=== PATIENT | female | born 1965 | race Caucasian/White ===

== ENCOUNTER 2017-07-02 10:07 | Emergency (ER) | payer BC ==
[2017-07-02 10:15] VITALS: BMI 26.4
--- NOTE | 2017-07-02 11:41 | PDOC ---
History of Present Illness - General Chief Complaint: Pain Stated Complaint: LT BREAST PAIN Time Seen by Provider: 07/02/17 10:28 - History of Present Illness Initial Comments: 07/02/17 11:28 CHIEF COMPLAINT: left sided pain HISTORY OF PRESENT ILLNESS: 52 yo F with hx of GERD presents to ED with L sided rib pain. Patient reports that she was recently on a cruise for a week in [place] on which "like 60 people got food poisoning"; she was vomiting and had " a lot of diarrhea" and went to the hospital when she returned to the port in [place] where she was started on Omeprazole. She stopped taking the Omeprazole three days ago. She denies any current nausea, vomiting, or diarrhea but states that she did have a lot of reflux pain after she had food poisoning. She states that today she started feeling "like warm, hot" when she urinates and that she "has to pee all the time." She reports a lot of pain to her left rib but denies any chest pain, palpitations, or shortness of breath. PAST MEDICAL HISTORY: GERD FAMILY HISTORY: Denies SOCIAL HISTORY: Denies tobacco, alcohol, illicit drug use. SURGICAL HISTORY: Denies ALLERGIES: No known drug allergies REVIEW OF SYSTEMS General/Constitutional: Denies fever or chills. Denies weakness, weight change. HEENT: Denies change in vision. Denies ear pain or discharge. Denies sore throat. Cardiovascular: Denies chest pain or shortness of breath. Respiratory: Denies cough, wheezing, or hemoptysis. Gastrointestinal: Denies nausea, vomiting, diarrhea or constipation. Denies rectal bleeding. Genitourinary: Urinary discomfort, urinary frequency. Musculoskeletal: Denies joint or muscle swelling or pain. Denies neck or back pain. Skin and breasts: Denies rash or easy bruising. PHYSICAL EXAM General Appearance: Well-appearing, appropriately dressed. No apparent distress. HEENT: EOMI, PERRLA, normal ENT inspection, normal voice, TMs normal, pharynx normal. No conjunctival pallor. No photophobia, scleral icterus. Neck: Supple. Trachea midline. No tenderness, rigidity, carotid bruit, stridor , lymphadenopathy, or thyromegaly. Respiratory/Chest: Lungs CTAB. No shortness of breath, chest tenderness, respiratory distress, accessory muscle use. No crackles, rales, rhonchi, stridor , wheezing, dullness Cardiovascular: RRR. S1, S2. Gastrointestinal/Abdominal: Normal bowel sounds. Abdomen soft, non-distended. No tenderness or rebound tenderness. No organomegaly, pulsatile mass, guarding , hernia, hepatomegaly, splenomegaly. Musculoskeletal/Extremities: L CVA tenderness vs tenderness to L lateral rib. FROM of all extremities, normal capillary refill. Pelvis Stable. No CVA tenderness. No tenderness to extremities, pedal edema, swelling, erythema or deformity. Integumentary: Appropriate color, dry, warm. No cyanosis, erythema, jaundice or rash Neurologic: lead radiologic technologist II-XII intact. Fully oriented, alert. Appropriate mood/affect. Motor strength 5/5. No appreciable EOM palsy, facial droop or sensory deficit. 07/02/17 11:44 Past History - Past Medical History Allergies/Adverse Reactions: Allergies Allergy/AdvReac Type Severity Reaction Status Date / Time No Known Allergies Allergy Verified 07/02/17 10:15 Home Medications: Ambulatory Orders Naproxen 250 mg PO BID #14 tablet 07/02/17 Anemia: No Asthma: No Cancer: No Cardiac Disorders: No CVA: No COPD: No CHF: No Dementia: No Diabetes: No GI Disorders: Yes (GERD, HIATAL HERNIA) Disorders: No HTN: No Hypercholesterolemia: Yes Liver Disease: No Seizures: No Thyroid Disease: No - Surgical History Abdominal Surgery: No Appendectomy: No Cardiac Surgery: No Cholecystectomy: Yes Lung Surgery: No Neurologic Surgery: No Orthopedic Surgery: Yes (FOOT SX CYST REMOVED) - Psycho/Social/Smoking Cessation Hx Anxiety: No Suicidal Ideation: No Smoking Status: No Smoking History: Never smoked Have you smoked in the past 12 months: No Number of Cigarettes Smoked Daily: 0 Hx Alcohol Use: No Drug/Substance Use Hx: No Substance Use Type: None Hx Substance Use Treatment: No *Physical Exam - Vital Signs Last Vital Signs Temp Pulse Resp BP Pulse Ox 97.6 F 78 20 140/87 99 07/02/17 10:11 07/02/17 10:11 07/02/17 10:11 07/02/17 10:11 07/02/17 10:11 ED Treatment Course - LABORATORY CBC & Chemistry Diagram: 07/02/17 11:47 07/02/17 11:47 - RADIOLOGY Radiology Studies Ordered: Category Date Time Status CHEST PA & LAT [RAD] Stat Radiology 07/02/17 11:24 Ordered Medical Decision Making - Medical Decision Making 07/02/17 11:58 52 yo F with hx of GERD presents to ED with reproducible L sided rib pain. -CBC, CMP, lipase, PT/INR -EKG, CXR -UA, Ucx, urine preg 07/02/17 13:07 Labs unremarkable. -30 mg IV Toradol Patient continues to complain of pain, worsening on inspiration. -D-dimer, r/o PE -Protonix, Pepcid 07/02/17 14:36 D-dimer negative. Pain likely musculoskeletal. Will discharge with close f/u with PCP. Patient states she has PCP in [place] and will follow up this week. Advised patient of signs and symptoms for return to ER; patient verbalized understanding and agrees to plan. *DC/Admit/Observation/Transfer Diagnosis at time of Disposition: Costochondral chest pain - Discharge Dispostion Disposition: HOME Condition at time of disposition: Stable Admit: No - Prescriptions Prescriptions: Naproxen 250 mg PO BID #14 tablet - Patient Instructions Printed Discharge Instructions: DI for Costochondritis Additional Instructions: As discussed, you need to follow up with your primary care doctor this week. Please take medications as prescribed. If you develop chest pain, shortness of breath, palpitations, headache, weakness, fever, or any new or worsening symptoms, please return to the ER.
[2017-07-02 11:59] LABS: BASOPHIL 1.1 % (0-2.0); EOSINOPHIL 0.5 % (0-4.5); MCH 29.7 pg (25.7-33.7); MCHC 33.6 g/dl (32.0-36.0); MEAN CELL VOLUME 88.6 fl (80-96); MEAN PLT VOLUME 7.5 fl (7.5-11.1); NEUTROPHILS 68.8 % (42.8-82.8); PLATELET COUNT 316 K/MM3 (134-434); RDW 13.1 % (11.6-15.6); WHITE BLOOD COUNT 8.1 K/mm3 (4.0-10.0)
[2017-07-02 12:02] LABS: URINE APPEARANCE CLEAR; URINE BILIRUBIN NEGATIVE (NEGATIVE); URINE BLOOD NEGATIVE (NEGATIVE); URINE COLOR STRAW; URINE GLUCOSE (UA) NEGATIVE (NEGATIVE); URINE KETONE NEGATIVE (NEGATIVE); URINE LEUK ESTERASE NEGATIVE (NEGATIVE); URINE NITRITE NEGATIVE (NEGATIVE); URINE PROTEIN NEGATIVE (NEGATIVE); URINE UROBILINOGEN NEGATIVE mg/dL (0.2-1.0)
[2017-07-02 12:32] LABS: ALBUMIN 3.8 g/dl (3.4-5.0); ALK PHOS 87 U/L (45-117); ANION GAP 6 (8-16); BILIRUBIN,TOTAL 0.4 mg/dL (0.2-1.0); CALCIUM 9.2 mg/dL (8.5-10.1); CO2 29 mmol/L (21-32); CREATININE 0.6 mg/dL (0.55-1.02); GLUCOSE,RANDOM 113 mg/dL (74-106); SGOT/AST 27 U/L (15-37); SGPT/ALT 68 U/L (12-78); TOT PROT 6.7 g/dl (6.4-8.2)
[2017-07-02 12:36] LABS: INR 1.03 (0.82-1.09); PROTHROMBIN TIME (PATIENT) 11.3 SEC (9.98-11.88)
[2017-07-02] MEDS ORDERED: KETOROLAC TROMETHAMINE 30 MG/1 ML VIAL IVPUSH ONE (12:39)
[2017-07-02] MEDS ORDERED: KETOROLAC TROMETHAMINE 30 MG/1 ML VIAL ONE ×2 (12:57→13:15)
[2017-07-02] MEDS ORDERED: FAMOTIDINE 20 MG/50 ML IVPB 50 ML IVPB ONE ×2 (13:02→13:10)
[2017-07-02] MEDS ORDERED: PANTOPRAZOLE SODIUM 40 MG in SODIUM CHLORIDE 100 ML IVPB ONE (13:02)
[2017-07-02] MEDS ORDERED: PANTOPRAZOLE SODIUM 100 ML IVPB ONE (13:10)
[2017-07-02 14:54] VITALS: BP 115/75; PULSE 80; TEMP 98.4
--- NOTE | 2017-07-02 15:14 | EKG ---
Test Reason : Blood Pressure : / mmHG Vent. Rate : 077 BPM Atrial Rate : 077 BPM P-R Int : 160 ms QRS Dur : 076 ms QT Int : 390 ms P-R-T Axes : 047 000 000 degrees QTc Int : 441 ms NORMAL SINUS RHYTHM NORMAL ECG NO PREVIOUS ECGS AVAILABLE Confirmed by TONI TIRADO MD ([id number]) on 07/02/2017 3:14:26 PM Referred By: Confirmed By:TONI TIRADO MD
== END 2017-07-02 14:56 | disposition home or self-care (01) ==
LOC: JER 10:07
PROC: 3E0333Z Introduction of Anti-inflammatory into Peripheral Vein, Percutaneous Approach (ICD-10-PCS; principal; 2017-07-02)
PROC: 3E033GC Introduction of Other Therapeutic Substance into Peripheral Vein, Percutaneous Approach (ICD-10-PCS; 2017-07-02)
DX: R07.81 Pleurodynia (principal); K21.9 Gastro-esophageal reflux disease without esophagitis; K44.9 Diaphragmatic hernia without obstruction or gangrene; E78.00 Pure hypercholesterolemia, unspecified
CPT/HCPCS: 36415; 71020-TC; 80053; 81003; 83690; 84703; 85025; 85379; 85610; 87086; 93005; 93010; 99283-25